=== PATIENT | female | born 1990 ===

== ENCOUNTER 2024-01-07 10:51 | Outpatient (REF) | payer OTHER, SELFPAY ==
[2024-01-08 13:16] LABS: Chlamydia Result Negative (Negative); GC Result Negative (Negative)
== END 2024-01-07 10:52 | disposition home or self-care (01) ==
LOC: LBN 10:51
PROVIDERS: Visit Provider Advanced Practice Midwife
DX: Z34.90 Encounter for supervision of normal pregnancy, unspecified, unspecified trimester (principal); O23.599 Infection of other part of genital tract in pregnancy, unspecified trimester; N76.0 Acute vaginitis; R30.0 Dysuria
CPT/HCPCS: 87491; 87591; 87086; 87480; 87510; 87660

== ENCOUNTER 2024-01-22 15:24 | Outpatient (CLI) | payer OTHER, SELFPAY ==
[2024-01-22 15:43] VITALS: BP 122/71; PULSE 73
[2024-01-22 15:46] VITALS: BP 122/71; PULSE 73
--- NOTE | 2024-01-22 16:22 | W.OBNST ---
Date of service: 01/22/24 Time of Service: 16:22 NST Evaluation Reason for NST Reasons for Nonstress Test: FALSE LABOR Reason for NST Other: dehydration Gestational Age Gestational Age in Weeks and Days: 30 Weeks and 0Days Test and Monitor Explained Test/Monitor Explained: Test Explained, Monitor Explained and Patient Verbalized Understanding Vital Signs Blood Pressure: 122/71 Pulse: 73 Urine Results Urine Protein: Negative Urine Ketones: Positive Urine Glucose: Negative Urine Blood: Negative NST Information Date on Monitor: 01/22/24 Time on Monitor: 15:27 Date off Monitor: 01/22/24 Time off Monitor: 15:49 Total Time on Monitor: 22 NST Interventions: PO Hydration Contraction Frequency: 0 NST Evaluation Patient States Movement: Present FHR Baseline: 140 Variability: Moderate 6-25 bpm Accelerations: 15x15 Decelerations: None NST Results: Reactive Note Ultrasound Done: N/A. NST Note Note: mild ketonuria and high specific gravity noted on urine dip no contractions, abd soft and nontender to palpation advised to increase fluid and caloric intake, discharged to home, f/up prn and in 2 wks NST Reviewed and Verified by: Nicole Brown
[2024-01-22 16:24] VITALS: BP 122/71; PULSE 73
== END 2024-01-22 16:19 ==
LOC: BCD 15:26 → OBS 15:35
PROVIDERS: Visit Provider Advanced Practice Midwife
DX: O47.03 False labor before 37 completed weeks of gestation, third trimester (principal); Z3A.30 30 weeks gestation of pregnancy
CPT/HCPCS: 59025

== ENCOUNTER 2024-02-01 03:46 | Outpatient (CLI) | payer OTHER, SELFPAY ==
[2024-02-01 16:48] LABS: HCT 37.7 % (36.0-46.0); HGB 12.6 g/dL (11.2-15.7); MCH 28.9 pg (27.0-33.0); MCHC 33.4 % (32.0-36.0); MCV 87 fL (80-95); MPV 9.5 fL (8.0-11.0); Platelet Count 278 10^3/uL (130-400); RBC 4.36 10^6/uL (3.93-5.22); RDW 12.6 % (11.7-14.6); RDW-SD 39.9 fL; WBC 8.14 10^3/uL (4.4-10.8)
== END 2024-02-01 03:47 | disposition home or self-care (01) ==
LOC: LBO 03:46
PROVIDERS: Visit Provider Advanced Practice Midwife
DX: Z34.90 Encounter for supervision of normal pregnancy, unspecified, unspecified trimester (principal)
CPT/HCPCS: 36415; 85027; 86850; 86900; 86901

== ENCOUNTER 2024-02-05 11:19 | Outpatient (CLI) | payer OTHER, SELFPAY ==
[2024-02-05 11:24] LABS: Glucose,1 Hr (Glucola) 169 mg/dL (80-140)
== END 2024-02-05 11:20 | disposition home or self-care (01) ==
LOC: LBO 11:19
PROVIDERS: Visit Provider Advanced Practice Midwife
DX: Z34.93 Encounter for supervision of normal pregnancy, unspecified, third trimester (principal)
CPT/HCPCS: 36415; 82950

== ENCOUNTER 2024-02-11 02:38 | Outpatient (CLI) | payer OTHER, SELFPAY ==
[2024-02-11 09:33] LABS: Glucose 1 Hour 166 mg/dL
[2024-02-11 11:29] LABS: Glucose 3 Hour 143 mg/dL
== END 2024-02-11 02:39 | disposition home or self-care (01) ==
LOC: LBO 02:39
PROVIDERS: Advanced Practice Midwife; Visit Provider Advanced Practice Midwife
DX: R73.09 Other abnormal glucose (principal)
CPT/HCPCS: 36415; 82951